=== PATIENT | male | born 1955 | race Caucasian/White ===

== ENCOUNTER → 2017-12-19 17:24 | Outpatient (CLI) | payer BC, SELFPAY ==
[2017-12-19 18:13] LABS: Absolute Lymphocyte Count 1.76 X10^3/ul (0.83-4.51); Absolute Neutrophil Count 8.1 X10^3/uL (2.0-7.7); Basophil# 0.03 X10^3/uL; Basophil% 0.3 % (0-1); Eosinophil# 0.02 X10^3/uL; Eosinophils% 0.2 % (0-5); Hematocrit 42.8 % (40-54); Hemoglobin 13.8 g/dl (13.0-16.5); Lymphocyte # 1.76 X10^3/ul (4.0); Lymphocyte % 15.9 % (19-41); Mean Corp Hgb Conc 32.2 g/gl (32-36); Mean Corpuscular Hgb 30.5 pg (27.0-32.0); Mean Corpuscular Volume 94.5 fL (80-94); Mean Platelet Vol. 9.9 fl (6.2-12.0); Monocyte# 1.14 X10^3/uL; Monocyte% 10.3 % (0-10); Neutrophil # 8.14 X10^3/uL (2.7-7.7); Neutrophil % 73.2 % (47-70); Platelet Count 243 K/mm3 (150-450); RBC Distribution Width CV 12.7 % (11.6-14.6); Red Blood Count 4.53 M/mm3 (4.6-6.2); White Blood Count 11.1 K/mm3 (4.4-11.0)
[2017-12-19 18:17] LABS: POSITIVE COUNT NO; POSITIVE DIFFERENTIAL NO; POSITIVE MORPHOLOGY NO
[2017-12-19 18:21] LABS: AST(SGOT) 23 U/L (15-37); Alanine Aminotransfer ALT/SGPT 33 U/L (16-61); Albumin, Serum 3.9 g/dL (3.2-5.0); Alkaline Phosphatase 63 U/L (45-117); Anion Gap 10 (5-15); BUN 19 mg/dL (7-18); BUN/Creat Ratio 20.1 RATIO (10-20); Calcium,Total 9.2 mg/dL (8.5-10.1); Chloride 101 mmol/L (98-107); Creatinine, Serum 0.95 mg/dL (0.70-1.30); EST Glomerular Filtration Rate 86 mL/min (>60); Est Glom Filt Rate - Afr Amer 105 mL/min (>60); Globulin 3.9 g/dL (2.2-4.2); Glucose 83 mg/dL (74-106); Potassium 3.9 mmol/L (3.5-5.1); Protein, Total 7.8 g/dL (6.4-8.2); Sodium Level 137 mmol/L (136-145)
== END ==
PROVIDERS: Family Provider Family Medicine; PCP Family Medicine; Visit Provider Family Medicine
DX: R19.8 Other specified symptoms and signs involving the digestive system and abdomen (principal)
CPT/HCPCS: 80053; 85025

== ENCOUNTER 2017-12-19 22:55 | Emergency (ER) | payer BC, SELFPAY ==
[2017-12-19 22:56] VITALS: BP 142/81; PULSE 81; RESP 18; TEMP 37.2; O2SAT 97; BMI 22.1
--- NOTE | 2017-12-19 23:08 | CT_ITS ---
STUDY: CT ABDOMEN AND PELVIS WITH CONTRAST REASON FOR EXAM: Male, 62 years old. Left lower quadrant pain. RADIATION DOSAGE (If Supplied By Facility): CTDIvol = ( 13.35 ) mGy, DLP = ( 732.63 ) mGycm TECHNIQUE: Transaxial images were obtained from the dome of the diaphragm to the symphysis pubis without oral contrast. 100ML ml of Isovue 300 contrast was administered. Sagittal and coronal images were reconstructed. Individualized dose optimization techniques were used for this CT. COMPARISON: None. FINDINGS: There is mild atelectasis in the visualized posterior lung bases. The visualized portions of the heart are within normal limits. Normal liver. Normal gallbladder and extrahepatic biliary system. Normal spleen. Normal pancreas. Normal bilateral adrenal glands. Normal right kidney. There is a 2 cm left renal cyst. Otherwise, normal kidneys. Assessment of the stomach is limited by nondistention. Normal small intestine. There are multiple colonic diverticula consistent with diverticulosis. There is mural thickening of the descending colon, greatest in the mid segment, with prominent phlegmonous infiltration of adjacent retroperitoneal fat, consistent with acute diverticulitis. There is no demonstrated abscess or free intraperitoneal air. The appendix is visualized on axial images 76-85 appears normal. There is diffuse atherosclerotic calcification as well as noncalcified plaque in the abdominal aorta with elongation and tortuosity, but without a demonstrated aneurysm. Normal inferior vena cava. Normal retroperitoneum. Normal urinary bladder. The prostate gland is enlarged. Normal abdominal wall. There are multilevel degenerative changes of the visualized lumbar spine. CT/Abdomen/Pelvis W IV Cont ONLY IMPRESSION: Acute diverticulitis of the descending colon. No associated abscess or free intraperitoneal air. Mildly enlarged prostate. Atherosclerosis. Left renal cyst. No demonstrated urinary calculi or hydronephrosis. Electronically Signed: Adam Bush MD at 1:02 EDT , Service support ,
[2017-12-19] MEDS: 0.9% Normal Saline 1,000 ML 999 ML IV (23:21)
--- NOTE | 2017-12-19 23:31 | ED.DCSUM_ITS ---
- ER Visit Summary Date of Service: 12/19/17 Chief Complaint: Left lower quadrant abdominal pain History of Present Illness: The patient is a 62 M presents to the emergency department with about 36 hours of intermittent left lower quadrant abdominal pain. The patient symptoms began last evening. He states he had some cramping diffusely across his abdomen. He states that it felt like it radiated to his testicle. He states that he had some constipation today and and the pain worsened more into his left lower quadrant. He actually saw Dr. Franklin's partner in the office. He had some blood work done. He was told that if his symptoms worsen, he should return to the emergency department. Patient states tonight, his pain worsened. He states his is a nurse and she was concerned and wanted him to be evaluated. He has had low-grade fever at home. He does admit to some mild nausea. He states the pain comes in waves. He denies any dysuria. Physical Examination: Vital signs reviewed General: Well-nourished, well-developed Head: Normocephalic, atraumatic Eyes: Pupils equal and reactive, extraocular muscles intact Neck, supple, no lymphadenopathy Heart: Regular rate and rhythm Respiratory: No distress, clear bilaterally Abdomen: Soft, mild tenderness in the left lower quadrant without rebound or guarding, nondistended, no peritoneal signs Back: Nontender Extremities: Nontender, no edema, no cords Skin: Normal color no rash Neuro: Alert and oriented, no focal or lateralizing deficits Test Results: [] Emergency Department Course and Treatment: The patient presents with left lower quadrant pain. He did have outpatient labs today which showed a mild leukocytosis but were otherwise unremarkable. He declined any analgesics. CT of his abdomen and pelvis was obtained. He does appear to have acute diverticulitis of the descending colon. There is no perforation or abscess. I did discuss options with the patient. He wants to attempt outpatient therapy and I feel this is reasonable. He will be started on Cipro and Flagyl. He declined any analgesics for home. We did primary counselor him that if his pain worsens or is not improving within 48 hours, he needs a follow-up with his primary care or return immediately to the emergency department. He is comfortable this plan of care. Treatment Plan: [] Disposition: Discharge Impression: Acute diverticulitis This note was generated with [employer]ation software. It may contain incorrect words, spelling, and punctuation that were not noted in review of the chart prior to signing ED Disposition - Plan for ED Patient: Chief Complaint: Abd Pain Instructions: ED Diverticulitis Prescriptions: Metronidazole [Flagyl] 500 mg PO Q8H #21 tab Ciprofloxacin [Cipro] 500 mg PO BID #14 tab Referrals: Foster Franklin MD [Primary Care Provider] -
[2017-12-20 00:55] VITALS: BP 128/82; PULSE 85; RESP 17; O2SAT 99
[2017-12-20] MEDS: Ciprofloxacin 500 MG Tablet PO (01:17)
[2017-12-20] MEDS: metroNIDAZOLE 500 MG Tablet PO (01:17)
== END 2017-12-20 01:25 | disposition home or self-care (01) ==
PROVIDERS: Emergency Provider Emergency Medicine; Family Provider Family Medicine; PCP Family Medicine
DX: K57.32 Diverticulitis of large intestine without perforation or abscess without bleeding (principal); I10 Essential (primary) hypertension; Z79.899 Other long term (current) drug therapy
CPT/HCPCS: 74177; 96360; 99284; J7030; Q9967

== ENCOUNTER → 2017-12-24 11:03 | Outpatient (CLI) | payer BC, SELFPAY ==
[2017-12-24 12:30] LABS: Anion Gap 8 (5-15); BUN 17 mg/dL (7-18); BUN/Creat Ratio 21.8 RATIO (10-20); Chloride 105 mmol/L (98-107); Creatinine, Serum 0.78 mg/dL (0.70-1.30); EST Glomerular Filtration Rate 108 mL/min (>60); Est Glom Filt Rate - Afr Amer 130 mL/min (>60); Glucose 83 mg/dL (74-106); Magnesium 2.4 mg/dL (1.6-2.6); Sodium Level 141 mmol/L (136-145)
== END ==
PROVIDERS: Family Provider Family Medicine; PCP Family Medicine; Visit Provider Family Medicine
DX: K57.92 Diverticulitis of intestine, part unspecified, without perforation or abscess without bleeding (principal)
CPT/HCPCS: 36415; 80048; 83735

== ENCOUNTER → 2018-02-04 13:32 | Outpatient (CLI) | payer BC, SELFPAY ==
--- NOTE | 2018-02-04 13:39 | EKG12_ITS ---
Test Reason : CABRERA Blood Pressure : / mmHG Vent. Rate : 050 BPM Atrial Rate : 050 BPM P-R Int : 162 ms QRS Dur : 094 ms QT Int : 450 ms P-R-T Axes : 018 035 044 degrees QTc Int : 410 ms Sinus bradycardia Minimal voltage criteria for LVH, may be normal variant Borderline ECG Confirmed by BRIEN BRIONES, MANJULA ([id number]), video editor VERÓNICA FRANKLIN ([id number]) on 02/05/2018 10:32:17 AM Referred By: Foster Franklin Confirmed By:MANJULA TESFAYE MD
--- NOTE | 2018-02-04 13:55 | CT_ITS ---
STUDY: CT CHEST WITHOUT CONTRAST REASON FOR EXAM: Male, 62 years old. Dyspnea on exertion. Calcium scoring examination. This is an over read. RADIATION DOSAGE (If Supplied By Facility): CTDIvol = ( 12.19 ) mGy, DLP = ( 292.55 ) mGycm TECHNIQUE: Transaxial imaging was performed without the administration of intravenous contrast material. Individualized dose optimization techniques were used for this CT. COMPARISON: None. FINDINGS: Minimal degree of left basilar atelectasis. There is no demonstrated pleural abnormality. There are calcifications of the coronary arteries. Normal mediastinum. Normal hilar regions. Normal unenhanced pulmonary arteries. There is atherosclerotic calcification of the aortic arch. Normal osseous structures. There is no demonstrated abnormality of the visualized upper abdomen. CT/Limited Chest CT w/CCTA IMPRESSION: Atherosclerotic plaque of the aortic arch. Coronary artery calcification. Electronically Signed: Obdulio Dunn MD at 9:28 EDT Tel [phone], Service support ,
[2018-02-04 14:38] VITALS: BP 145/77; PULSE 46; RESP 18; O2SAT 97
--- NOTE | 2018-02-06 07:25 | CA.SCORE ---
Calcium Scoring Date of Study:: 02/06/18 Coronary Calcium Scoring: Coronary calcium scoring. High-resolution computed tomographic imaging of the chest was performed on 02/04/2018 with particular attention paid to the coronary arteries. Images from the examination were analyzed for the presence and extent of coronary artery calcification using the coronary calcium call quantification software. The patient tolerated the procedure well there were no complications. The results of the coronary calcification analysis are provided below: Left main coronary artery mild calcification 3.58. Left anterior descending artery 0 Left circumflex artery 0 Right coronary artery 0. Total [place] score 3.58. Percentile ranking less than 10%. The above is suggestive of a low likelihood of coronary artery disease. Impression: Minimal left main coronary artery calcification. Low likelihood of coronary artery disease.
== END ==
PROVIDERS: Family Provider Family Medicine; PCP Family Medicine; Referring Provider Family Medicine; Visit Provider Family Medicine
DX: R06.09 Other forms of dyspnea (principal)
CPT/HCPCS: 75571; 76380; 93005

== ENCOUNTER → 2018-04-29 08:38 | Outpatient (CLI) | payer BC, SELFPAY ==
[2018-04-29 10:24] LABS: Anion Gap 7 (5-15); BUN 16 mg/dL (7-18); BUN/Creat Ratio 20.1 RATIO (10-20); Calcium,Total 8.6 mg/dL (8.5-10.1); Chloride 105 mmol/L (98-107); Cholesterol 214 mg/dL (200); EST Glomerular Filtration Rate 105 mL/min (>60); Est Glom Filt Rate - Afr Amer 127 mL/min (>60); Glucose 90 mg/dL (74-106); High Density Lipoprotein 77 mg/dL; PSA,Total - Annual Screen 1.11 ng/mL (0.00-4.00); Potassium 4.1 mmol/L (3.5-5.1); Sodium Level 141 mmol/L (136-145); Triglycerides 73 mg/dL; Very Low Density Lipoprotein 15 mg/dL (5-40)
--- OUTSIDE RECORDS SUMMARY | 2018-07-01 15:53 | XMS RPT_ITS ---
:1955 Author Organization OHIP Support Name Relationship Address Phone LINA CROCKETT Unavailable [address] + [place] [address] CROCKETT, MONICA Unavailable Unavailable + [place], [place] [employer] Unavailable [address] + [place] [address] Crockett, Monica Unavailable Unavailable + [place] [address] CROCKETT, LINA Unavailable [address] + [place] [address] [employer] Unavailable [address] + [place] [address] Crockett, Monica Unavailable Unavailable + [place] [address] CROCKETT, LINA Unavailable [address] + [place] [address] [employer] Unavailable [address] + [place] [address] Crockett, Monica Unavailable Unavailable + [place] [address] CROCKETT, LINA Unavailable [address] + [place] [address] [employer] Unavailable [address] + [place] [address] Crockett, Monica Unavailable . + [place] [address] KEIRA, LINA Unavailable [address] + [place] [address] [employer] Unavailable [address] + [place] [address] CROCKETT, LINA Unavailable [address] + [place] [address] [employer] Unavailable [address] + [place] [address] CROCKETT, LINA Unavailable [address] [facility] + [place] [address] [employer] Unavailable [address] [facility] + [place] [address] LINA CROCKETT Unavailable [address] [facility] + [place] [address] [employer] Unavailable [address] + [place] [address] Care Team Providers Name Role Phone RigobertoFoster Attending Unavailable Nye, Foster Referring Unavailable Nye, Foster Primary Care Unavailable Schinner, Foster E Attending Unavailable Schinner, Foster E Referring Unavailable Nye, Foster Primary Care Unavailable Nye, Foster Primary Care Unavailable Esperanza, Didier Attending Unavailable Neal, Delvin Attending Unavailable Nye, Foster Primary Care Unavailable Cebul, Chico Attending Unavailable Nye, Foster Referring Unavailable Nye, Foster Attending Unavailable Nye, Foster Referring Unavailable Nye, Foster Primary Care Unavailable Lauren, Richard Attending Unavailable Nye, Foster Referring Unavailable Nye, Foster Primary Care Unavailable Nye, Foster Consulting Unavailable MoodisFco giron Attending Unavailable Nye, Foster Referring Unavailable PROBLEMS PROBLEMS DATE TYPE CONDITION / CODE ATTENDING STATUS SOURCE 03/25/2018 Unknown R06.09 - Other forms Foster Nye Active [place] of dyspnea / Community R06.09(ICD-10) Hospital Repository 02/20/2018 Unknown R00.1 - Bradycardia, Fco Tesfaye Active [place] unspecified / Community R00.1(ICD-10) Hospital Repository 01/25/2018 Unknown K57.92 - Chico Lombardi Active [place] Diverticulitis of [facility] intestine, part Hospital unspecified, without Repository perforation or abscess without bleeding / K57.92(ICD-10) PROCEDURES PROCEDURES No Procedure Records FoundRESULTS RESULTS BASIC METABOLIC Collected: 04/29/2018 Status: F Source: [place] PROFILE (BMP) 8:44 AM [facility] REPOSITORY Order Comment: Order Date: 09/20/17 Order Info: 0667-1 - BMP Order Info: 58219-9 - LIPID Order Info: 2857-1 - PSA TYPE CODE TESTS RESULT OUT OF RANGE REFERENCE UNITS LAB L501.0100 74-106 mg/dL Normal GLU 90 Result Comment: Please note revised GLUCOSE reference range effective 2017. LAB L501.1000 7-18 mg/dL Normal BUN 16 LAB L501.1100 0.70-1.30 mg/dL Normal CREAT,SERUM 0.80 Result Comment: The validity of the calculated GFR AND GFRAA in patients over 70 years has not been determined. Clinical correlation is essential. LAB L501.1110 >60 mL/min Normal EST GFR 105 Result Comment: Non- GFR Calc LAB L501.1115 >60 mL/min Normal EST GFR - AA 127 Result Comment: GFR Calc LAB L501.1300 10-20 RATIO High BUN/CRE 20.1 LAB L501.2200 8.5-10.1 mg/dL CA Normal 8.6 LAB L501.5300 136-145 mmol/L NA Normal 141 LAB L501.5600 3.5-5.1 mmol/L K Normal 4.1 LAB L501.5900 98-107 mmol/L CL Normal 105 LAB L501.6100 21.0-32.0 mmol/L Normal CO2 29.0 LAB L501.6200 5-15 Normal GAP 7 Performed By: #### L500.2500, L500.4100, L501.9910 #### [facility] [address] [place], [address] LIPID PROFILE Collected: 04/29/2018 Status: F Source: [place] 8:44 AM [facility] REPOSITORY Order Comment: Order Date: 09/20/17 Order Info: 0667-1 - BMP Order Info: 35949-8 - LIPID Order Info: 2857-1 - PSA TYPE CODE TESTS RESULT OUT OF RANGE REFERENCE UNITS LAB L501.4900 200 mg/dL High CHOL 214 Result Comment: <200 mg/dL Desirable 200-240 mg/dL Borderline >240 mg/dL High Risk LAB L501.5000 mg/dL Normal TRIG 73 Result Comment: The drugs N-Acetylcysteine and Metamizole may falsely depress this assay. Serum Triglycerides Reference Interval Normal <150 mg/dL Borderline high 150 - 199 mg/dL High 200 - 499 mg/dL Very High > or = 500 mg/dL LAB L501.6400 mg/dL Normal HDL 77 Result Comment: The drugs N-Acetylcysteine and Metamizole may falsely depress this assay. Reference Range HDL <40 mg/dL Low HDL Cholesterol HDL >or= 60 mg/dL High HDL Cholesterol LAB L501.6500 0-130 mg/dL Normal LDL 122 LAB L501.6600 5-40 mg/dL Normal VLDL 15 Performed By: #### L500.2500, L500.4100, L501.9910 #### [facility] [address] [place], [address] PSA,TOTAL - ANNUAL Collected: 04/29/2018 Status: F Source: [place] SCREEN 8:44 AM [facility] REPOSITORY Order Comment: Order Date: 09/20/17 Order Info: 0667-1 - BMP Order Info: [id number] - LIPID Order Info: 2857-1 - PSA TYPE CODE TESTS RESULT OUT OF RANGE REFERENCE UNITS LAB L501.9910 0.00-4.00 ng/mL Normal PSA,TOT 1.11 SCREEN Result Comment: This test was performed using the TPSA assay method for the [employer] chemistry system. Values obtained with different assay methods cannot be used interchangably. When changing PSA assays in the course of monitoring a patient, additional sequential testing should be carried out to confirm baseline values. Performed By: #### L500.2500, L500.4100, L501.9910 #### [facility] [address] [place], [address] 12 LEAD ELECTROCARDIOGRAM Observed: 02/05/2018 Status: F Source: [place] 10:32 AM [facility] REPOSITORY [facility] Cardiovascular Services [address] [place] [address] 12 Lead EKG 02/04/18 1348 MR#: [id number] Acct: [id number] Name: KALIN CROCKETT Rep #: [id number] : 1955 62 From: Fco Tesfaye MD Attending Dr: Foster Nye MD Status: REG CLI Ordering Dr: Foster Nye MD Date: 02/04/18 Location: CT Sex: M C Admitted: Test Reason : CABRERA Blood Pressure : / mmHG Vent. Rate : 050 BPM Atrial Rate : 050 BPM P-R Int : 162 ms QRS Dur : 094 ms QT Int : 450 ms P-R-T Axes : 018 035 044 degrees QTc Int : 410 ms Sinus bradycardia Minimal voltage criteria for LVH, may be normal variant Borderline ECG Confirmed by FCO TESFAYE MD ([id number]), communications editor VERÓNICA NYE ([id number]) on 02/05/2018 10:32:17 AM Referred By: Foster Nye Confirmed By:FCO TESFAYE MD 02/05/18 1032 Date Fco Tesfaye MD CC: Foster Nye MD Signed LIMITED CHEST CT Observed: 02/04/2018 Status: F Source: [place] W/CCTA 2:00 PM [facility] REPOSITORY [facility] Imaging Services [address] [place] [address] w/CCTA MR#: [id number] Acct: [id number] Name: KALIN CROCKETT Rep #: [id number] : 1955 M 62 From: Obdulio Dunn MD PCP: Foster Nye MD Status: REG CLI Study: Limited Chest CT w/CCTA Date of Exam: 02/04/18 Exam# [id number] Ordering Dr: Foster Nye MD STUDY: CT CHEST WITHOUT CONTRAST REASON FOR EXAM: Male, 62 years old. Dyspnea on exertion. Calcium scoring examination. This is an over read. RADIATION DOSAGE (If Supplied By Facility): CTDIvol = ( 12.19 ) mGy, DLP = ( 292.55 ) mGycm TECHNIQUE: Transaxial imaging was performed without the administration of intravenous contrast material. Individualized dose optimization techniques were used for this CT. COMPARISON: None. FINDINGS: Minimal degree of left basilar atelectasis. There is no demonstrated pleural abnormality. There are calcifications of the coronary arteries. Normal mediastinum. Normal hilar regions. Normal unenhanced pulmonary arteries. There is atherosclerotic calcification of the aortic arch. Normal osseous structures. There is no demonstrated abnormality of the visualized upper abdomen. CT/Limited Chest CT w/CCTA IMPRESSION: Atherosclerotic plaque of the aortic arch. Coronary artery calcification. Electronically Signed: Obdulio Dunn MD at 9:28 EDT Tel [phone], Service support , CC: Foster Nye MD Ems Driver: Signed SURGERY VISIT REPORT Observed: 01/25/2018 Status: F Source: [place] 3:09 PM [facility] RE[facility]ITORY [facility] [address] [place] [address] OFFICE VISIT Date of Service: 01/25/18 MR#: [id number] Acct: [id number] Name: KALIN CROCKETT Rep #: [id number] : 1955 Provider: Chico Lombardi MD Age/Sex: 62/M Location: [facility] Status: Signed Intake Vital Signs01/25/18 Height 6 ft 3.5 in 01/25/18 Weight: 164 lb Intake Visit Reasons: diverticulitis, recent er visit (12/19), cscope Allergies No Known Allergies Allergy (Verified 12/19/17 22:55) Medications enalapril 10 mg-hydrochlorothiazide 25 mg tablet 0.5 tab PO DAILY tab 01/25/18 [History Confirmed 01/25/18] PFSH Medical History Diverticulitis (Acute) Hemorrhoids (Acute) Sleep apnea (Acute) Anxiety (Acute) Back problem (Acute) Surgical History Hx of foot surgery (Acute) Hx of eye surgery (Acute) Family History Father Hypertension Cancer Skin cancer Mother CVA (cerebral vascular accident) Social History Smoking Status: Never smoker second hand exposure: No alcohol intake: never substance use type: does not use caffeine: Yes what type of physical activity do you participate in: walking frequency: 5-6 times per week duration: > 90 minutes/day seatbelt use: always HPI HPI HPI: KALIN CROCKETT, is a 62 M who presents to the office today for surgical consultation and treatment regarding a bout of acute sigmoid diverticulitis. 62-year-old gentleman. 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 On December 19, 2017 he presented to the [facility] emergency room because of acute abdominal pain and fever. On December [address] scan was obtained. This demonstrated multiple colonic diverticula consistent with diverticulosis. There is mural thickening in the descending colon with prominent phlegmon and infiltration consistent with acute diverticulitis. No abscess. The patient was initially scheduled with GI to pursue a colonoscopy however there were issues with the provider who canceled. Patient now is seeking additional assistance. He does not recall of specific food that was etiologic to this episode. He is long-ago returned to work without limitation. He did take ciprofloxacin as an oral antibiotic as he was treated as an outpatient but claims that the ciprofloxacin was hard to tolerate because of confusion and dizziness. The patient has never had a previous colonoscopy. He denies family history of colon polyps or colon cancer. He denies any current symptoms of fever or abdominal pain. ROS General General: Yes weight change; no appetite, fatigue, colon cancer or breast cancer HEENT HEENT: Yes eye surgery; no difficulty swallowing, eye injury, swollen glands or hoarseness Endo Endocrine: No thyroid disease, diabetes mellitus, thyroid cancer, Hair loss, heat intolerance or cold intolerance Skin Skin: No rash or changing moles Musc Musculoskeletal: Yes back problems; no arthritis, rheumatoid arthritis, gout or joint pain Cardio Cardiovascular: No murmur, pacemaker, heart disease, atrial fibrillation, high blood pressure, heart attack, heart stent, palpitations, shortness of breat with exertion or chest pain Psych Psychiatric: Yes anxiety; no depression or hearing voices Resp Respiratory: No shortness of breath, Yes sleep apnea, No cough, No COPD, No asthma, No emphysema, No wheezing Gastro Gastrointestinal: Yes hemorrhoids, Yes gallbladder problem, No abdominal pain, No nausea or vomiting, No diarrhea, No constipation, No blood in stool, No acid reflux, No ulcers, No black,tarry stools Leo Hematologic: No blood thinners, No blood disorders, No bleeding, No anemia, No blood clots Neuro Neurologic: Yes tingling, Yes numbness Exam Const General: cooperative, healthy appearing, no acute distress Nutritional Appearance: average body habitus Orientation: alert, awake, oriented x3 HENMT Head: normal to inspection Eyes General: appearance normal, both eyes and all related structures Resp Effort AND Inspection: normal respiratory effort Auscultation: clear to auscultation bilaterally Cardio Rate: regular rate Rhythm: regular rhythm Heart Sounds: no murmurs GI Palpation: soft, no hepatosplenomegaly Auscultation: normal bowel sounds Skin General: no rashes or lesions noted Neuro General: CN's II-XI intact bilaterally Extrem General: no calf tenderness Assessment AND Plan Problems 1. Diverticulitis K57.92 Plan I have recommended the patient a colonoscopy with possible biopsy or polyp is indicated. Very careful inspection of the sigmoid and descending colon were done soon. The patient is aware of the technique, benefits, risks, alternatives. 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 We will schedule and proceed at his discretion. I very much appreciate the kind opportunity of assisting with his surgical care. is Lina CC: Dr. KIERAN Lombardi M.D., F.A.C.S. Coding Level of Care Code Off vis,new,level 1 Diagnoses Diverticulitis K57.92 01/25/18 1509 <Electronically signed by Chico Lombardi MD> Date Chico Lombardi MD Cosigner Signature: Date (if applicable) CC: Foster Nye MD BASIC METABOLIC Collected: 12/24/2017 Status: F Source: [place] PROFILE (BMP) 11:05 AM [facility] REPOSITORY TYPE CODE TESTS RESULT OUT OF RANGE REFERENCE UNITS LAB L501.0100 74-106 mg/dL Normal GLU 83 Result Comment: Please note revised GLUCOSE reference range effective 2017. LAB L501.1000 7-18 mg/dL Normal BUN 17 LAB L501.1100 0.70-1.30 mg/dL Normal CREAT,SERUM 0.78 Result Comment: The validity of the calculated GFR AND GFRAA in patients over 70 years has not been determined. Clinical correlation is essential. LAB L501.1110 >60 mL/min Normal EST GFR 108 Result Comment: Non- GFR Calc LAB L501.1115 >60 mL/min Normal EST GFR - AA 130 Result Comment: GFR Calc LAB L501.1300 10-20 RATIO High BUN/CRE 21.8 LAB L501.2200 8.5-10.1 mg/dL CA Normal 9.0 LAB L501.5300 136-145 mmol/L NA Normal 141 LAB L501.5600 3.5-5.1 mmol/L K Normal 4.0 LAB L501.5900 98-107 mmol/L CL Normal 105 LAB L501.6100 21.0-32.0 mmol/L Normal CO2 28.0 LAB L501.6200 5-15 Normal GAP 8 Performed By: #### L500.2500, L501.5200 #### [facility] [address] [facility] [place], [address] MAGNESIUM Collected: 12/24/2017 Status: F Source: [place] 11:05 AM [facility] REPOSITORY TYPE CODE TESTS RESULT OUT OF RANGE REFERENCE UNITS LAB L501.5200 1.6-2.6 mg/dL Normal MG 2.4 Performed By: #### L500.2500, L501.5200 #### [facility] [address] [place], [address] EMERGENCY DEPARTMENT Observed: 12/20/2017 Status: F Source: [place] SUMMARY 1:58 AM [facility] REPOSITORY [facility] Medical Records Department [address] [place] [address] Emergency Department Summary 12/19/17 2330 MR#: [id number] Acct: [id number] Name: KALIN CROCKETT Rep #: [id number] : 1955 62 From: Didier Mata MD PCP: Foster Nye MD Status: DEP ER - ER Visit Summary Date of Service: 12/19/17 Chief Complaint: Left lower quadrant abdominal pain History of Present Illness: The patient is a 62 M presents to the emergency department with about 36 hours of intermittent left lower quadrant abdominal pain. The patient symptoms began last evening. He states he had some cramping diffusely across his abdomen. He states that it felt like it radiated to his testicle. He states that he had some constipation today and and the pain worsened more into his left lower quadrant. He actually saw Dr. Nye's partner in the office. He had some blood work done. He was told that if his symptoms worsen, he should return to the emergency department. Patient states tonight, his pain worsened. He states his is a nurse and she was concerned and wanted him to be evaluated. He has had low-grade fever at home. He does admit to some mild nausea. He states the pain comes in waves. He denies any dysuria. Physical Examination: Vital signs reviewed General: Well-nourished, well-developed Head: Normocephalic, atraumatic Eyes: Pupils equal and reactive, extraocular muscles intact Neck, supple, no lymphadenopathy Heart: Regular rate and rhythm Respiratory: No distress, clear bilaterally Abdomen: Soft, mild tenderness in the left lower quadrant without rebound or guarding, nondistended, no peritoneal signs Back: Nontender Extremities: Nontender, no edema, no cords Skin: Normal color no rash Neuro: Alert and oriented, no focal or lateralizing deficits Test Results: [] Emergency Department Course and Treatment: The patient presents with left lower quadrant pain. He did have outpatient labs today which showed a mild leukocytosis but were otherwise unremarkable. He declined any analgesics. CT of his abdomen and pelvis was obtained. He does appear to have acute diverticulitis of the descending colon. There is no perforation or abscess. I did discuss options with the patient. He wants to attempt outpatient therapy and I feel this is reasonable. He will be started on Cipro and Flagyl. He declined any analgesics for home. We did work counselor him that if his pain worsens or is not improving within 48 hours, he needs a follow-up with his primary care or return immediately to the emergency department. He is comfortable this plan of care. Treatment Plan: [] Disposition: Discharge Impression: Acute diverticulitis This note was generated with [employer] dictation software. It may contain incorrect words, spelling, and punctuation that were not noted in review of the chart prior to signing ED Disposition - Plan for ED Patient: Chief Complaint: Abd Pain Instructions: ED Diverticulitis Prescriptions: Metronidazole [Flagyl] 500 mg PO Q8H #21 tab Ciprofloxacin [Cipro] 500 mg PO BID #14 tab Referrals: Foster Nye MD [Primary Care Provider] - What to do if you have Problems For any increased pain, shortness of breath, bleeding, nausea or vomiting, chest pain, or any unexpected problems, contact your Primary Care Provider. Call [facility] ([phone]) or report to the closest Emergency Room. Call 911 if necessary. 12/20/17 0158 <Electronically signed by Didier Mata MD> Date Didier Mata MD Cosigner Signature (If Indicated): Date CC: Foster Nye MD ABDOMEN/PELVIS W IV CONT Observed: 12/19/2017 Status: F Source: [place] ONLY 11:09 PM [facility] REPOSITORY [facility] Imaging Services [address] [place] [address] Abdomen/Pelvis W IV Cont ONLY MR#: [id number] Acct: [id number] Name: KALIN CROCKETT Rep #: [id number] : 1955 M 62 From: Adam Bush MD PCP: Foster Nye MD Status: REG ER Study: Abdomen/Pelvis W IV Cont ONLY Date of Exam: 12/19/17 Exam# [id number] Ordering Dr: Didier Mata MD STUDY: CT ABDOMEN AND PELVIS WITH CONTRAST REASON FOR EXAM: Male, 62 years old. Left lower quadrant pain. RADIATION DOSAGE (If Supplied By Facility): CTDIvol = ( 13.35 ) mGy, DLP = ( 732.63 ) mGycm TECHNIQUE: Transaxial images were obtained from the dome of the diaphragm to the symphysis pubis without oral contrast. 100ML ml of Isovue 300 contrast was administered. Sagittal and coronal images were reconstructed. Individualized dose optimization techniques were used for this CT. COMPARISON: None. FINDINGS: There is mild atelectasis in the visualized posterior lung bases. The visualized portions of the heart are within normal limits. Normal liver. Normal gallbladder and extrahepatic biliary system. Normal spleen. Normal pancreas. Normal bilateral adrenal glands. Normal right kidney. There is a 2 cm left renal cyst. Otherwise, normal kidneys. Assessment of the stomach is limited by nondistention. Normal small intestine. There are multiple colonic diverticula consistent with diverticulosis. There is mural thickening of the descending colon, greatest in the mid segment, with prominent phlegmonous infiltration of adjacent retroperitoneal fat, consistent with acute diverticulitis. There is no demonstrated abscess or free intraperitoneal air. The appendix is visualized on axial images 76-85 appears normal. There is diffuse atherosclerotic calcification as well as noncalcified plaque in the abdominal aorta with elongation and tortuosity, but without a demonstrated aneurysm. Normal inferior vena cava. Normal retroperitoneum. Normal urinary bladder. The prostate gland is enlarged. Normal abdominal wall. There are multilevel degenerative changes of the visualized lumbar spine. CT/Abdomen/Pelvis W IV Cont ONLY IMPRESSION: Acute diverticulitis of the descending colon. No associated abscess or free intraperitoneal air. Mildly enlarged prostate. Atherosclerosis. Left renal cyst. No demonstrated urinary calculi or hydronephrosis. Electronically Signed: Adam Bush MD at 1:02 EDT , Service support , CC: Foster Nye MD; Didier Mata MD Ems Driver: Signed CBC W/DIFF, AUTOMATED Collected: 12/19/2017 Status: F Source: [place] 5:40 PM [facility] REPOSITORY Order Comment: Order Date: 12/19/17 Order Info: 0184-1 - CBCD TYPE CODE TESTS RESULT OUT OF RANGE REFERENCE UNITS LAB L100.1000 4.4-11.0 K/mm3 High WBC 11.1 LAB L100.1200 4.6-6.2 M/mm3 Low RBC 4.53 LAB L100.1300 13.0-16.5 g/dl Normal HGB 13.8 LAB L100.1400 40-54 % Normal HCT 42.8 LAB L100.1500 80-94 fL High MCV 94.5 LAB L100.1600 27.0-32.0 pg Normal MCH 30.5 LAB L100.1700 32-36 g/gl Normal MCHC 32.2 LAB L100.1810 11.6-14.6 % Normal RDW CV 12.7 LAB L100.1820 35.1-43.9 fl High RDW SD 44.0 LAB L100.1900 150-450 K/mm3 Normal PLT 243 LAB L100.2000 6.2-12.0 fl Normal MPV 9.9 LAB L100.2100 47-70 % High NEUT% 73.2 LAB L100.2200 19-41 % Low LY% 15.9 LAB L100.2300 0-10 % High MONO% 10.3 LAB L100.2400 0-5 % Normal EO% 0.2 LAB L100.2500 0-1 % Normal BASO% 0.3 LAB L100.2550 0.0-0.9 % Normal IM GRAN % 0.100 Result Comment: IG% - Immature Granulocytes (promyelocytes, myelocytes and metamyelocytes) > 1% indicates that a LEFT SHIFT is Present. LAB L100.2620 2.0-7.7 X10 3/uL High Absolute Neut 8.1 LAB L100.2720 0.83-4.51 X10 3/ul Normal Absolute Lymph 1.76 Performed By: #### L100.0100, L500.4050 #### [facility] [address] [place], [place], [address] COMPREHENSIVE METABOLIC Collected: 12/19/2017 Status: F Source: [facility] 5:40 PM [facility] REPOSITORY Order Comment: Order Date: 12/19/17 Order Info: 0786-1 - CMP TYPE CODE TESTS RESULT OUT OF RANGE REFERENCE UNITS LAB L501.0100 74-106 mg/dL Normal GLU 83 Result Comment: Please note revised GLUCOSE reference range effective 2017. LAB L501.1000 7-18 mg/dL High BUN 19 LAB L501.1100 0.70-1.30 mg/dL Normal CREAT,SERUM 0.95 Result Comment: The validity of the calculated GFR AND GFRAA in patients over 70 years has not been determined. Clinical correlation is essential. LAB L501.1110 >60 mL/min Normal EST GFR 86 Result Comment: Non- GFR Calc LAB L501.1115 >60 mL/min Normal EST GFR - AA 105 Result Comment: GFR Calc LAB L501.1300 10-20 RATIO High BUN/CRE 20.1 LAB L501.1500 6.4-8.2 g/dL T Normal PROT 7.8 LAB L501.1800 3.2-5.0 g/dL Normal ALB 3.9 LAB L501.1950 2.2-4.2 g/dL Normal GLOB 3.9 LAB L501.2000 0.9-2.4 RATIO Normal A/G 1.0 LAB L501.2200 8.5-10.1 mg/dL CA Normal 9.2 LAB L501.4100 15-37 U/L Normal AST 23 LAB L501.4305 45-117 U/L Normal ALK P 63 LAB L501.4405 16-61 U/L Normal ALT 33 LAB L501.4600 0.20-1.00 mg/dL T Normal BILI 0.50 LAB L501.5300 136-145 mmol/L NA Normal 137 LAB L501.5600 3.5-5.1 mmol/L K Normal 3.9 LAB L501.5900 98-107 mmol/L CL Normal 101 LAB L501.6100 21.0-32.0 mmol/L Normal CO2 26.0 LAB L501.6200 5-15 Normal GAP 10 Performed By: #### L100.0100, L500.4050 #### [facility] [address] [facility] [place], [address] ALLERGIES ALLERGIES DATE TYPE / CODE NAME / CODE REACTION SEVERITY SOURCE 02/04/2018 Drug hydrocodone/F Upset Stomach [place] [facility] Allergy/4160 [id number]([facility] [address]28(SNOMED ORM) Repository CT) 02/04/2018 Drug oxycodone/F00 Upset Stomach [place] [facility] Allergy/4160 [id number]([facility] [address](SNOMED M) Repository CT) 02/04/2018 Drug acetaminophen Upset Stomach [place] [facility] Allergy/4160 /[id number]([facility] [address]45(SNOMED XNORM) Repository CT) 12/19/2017 Drug No Known Unknown Michael [facility] Allergy/4160 Allergies/F00 Hospital [address]9922(SNOMED 1254486(RXNOR Repository CT) M) ENCOUNTERS ENCOUNTERS ADMIT/DISCHARGE ACCOUNT ADMITTING ENCOUNTER LOCATION SOURCE NUMBER CLASS 04/29/2018 [id number] [place] 1 [facility] ing:LAB Repository 02/06/2018 [id number] Ambulatory BMS[place] 0 [place] [place] 02/04/2018 [id number] Ambulatory [place] 8 [facility] ing:CT Repository 02/04/2018 [id number] Ambulatory BMSBuilding:[place] 3 [facility] Repository 01/25/2018/ [id number] Ambulatory BMSBuilding:B [place] 8 3 [place] [facility] [place] 12/24/2017 [id number] Ambulatory [place] 2 [facility] ing:MFPLAB Repository 12/19/2017/ [id number] Emergency [place] 8 8 [facility] ing:ED Repository 12/19/2017 [id number] Ambulatory [place] 7 [facility] ing:LAB Repository PAYERS PAYERS ENCOUNTER GUARANTOR PAYER SUBSCRIBER SOURCE 04/29/2018 KALIN [place] Primary KALIN E [place] W [facility] Insurance:ANTHEMPolic BAIRDDOB: [facility] Number: [id number] [address]Mkz: [id number] Repository Date:8284-77-14[address] () [address], [place] [address]JK: 04/29/2018 Secondary NOT GIVENUNK Michael Insurance:SELF PAY [facility] Number: Effective Repository Date:2018-04-29 02/06/2018 KALIN [place] Primary Insurance:[facility] KALIN E [place] [facility] PACKAGE PLANPolicy BAIRDDOB: [facility] Number: [id number] [address]Qrb: [id number] Repository Date:2018-01-24 () 02/06/2018 Secondary KALIN E [place] Insurance:ANTHEMPolic BAIRDDOB: Community y Number: [id number] Hospital [id number] Repository Date:1614-99-[address], [place] [address]CE: 02/06/2018 Tertiary NOT GIVENUNK Michael Insurance:SELF PAY [facility] Number: Effective Repository Date:2018-02-06 02/04/2018 KALIN E BAIRD15 Primary KALIN E [place] W [employer] Insurance:ANTHEMPolic BAIRDDOB: [facility], y Number: [id number] Hospital [place] [address]Awa: [id number] Repository Date:8242-62-31[address] () [address], [place] [address]CE: 02/04/2018 Secondary KALIN E [place] Insurance:[facility] PACKAGE BAIRDDOB: [facility] Number: [id number] Hospital [id number] Repository Date:2018-01-24 02/04/2018 Tertiary NOT GIVENUNK [place] Insurance:SELF PAY [facility] Number: Effective Repository Date:2018-01-24 02/04/2018 KALIN E BAIRD15 Primary Insurance:[facility] KALIN E [place] W [employer] PACKAGE PLANPolicy BAIRDDOB: [facility], Number: [id number] Hospital [place] [address]Dsk: [id number] Repository Date:2018-01-24 () 02/04/2018 Secondary KALIN E [place] Insurance:ANTHEMPolic BAIRDDOB: [facility] y Number: [id number] Hospital [id number] Repository Date:7263-02-70[address], [place] [address]SP: 02/04/2018 Tertiary NOT GIVENUNK [place] Insurance:SELF PAY [facility] Number: Effective Repository Date:2018-02-04 01/25/2018 KALIN E BAIRD15 Primary KALIN E [place] W [employer] Insurance:ANTHEMPolic BAIRDDOB: [facility] [place] y Number: [id number] Medical [facility] [address]Cut: [id number] Repository Date:2622-62-62[address] () [address]OXCXGOOLARA HUI [address]WQ: 01/25/2018 Secondary NOT GIVENUNK [place] Insurance:SELF PAY [facility] Number: Effective Repository Date:2018-01-25 12/24/2017 Kalin E Baird15 Primary Kalin E [place] W [employer] Insurance:ANTHEMPolic [place]aird[place]OB[place] Number: [id number] [address]Iqe: [id number] Repository Date:8358-13-93[address] () [address]XNYAEJMLARA HUI [address]LJ: 12/24/2017 Secondary NOT GIVENUNK [place] Insurance:SELF PAY [facility] Number: Effective Repository Date:2017-12-24 12/19/2017 Kalin E Baird15 Primary Kalin E [place] W [employer] Insurance:ANTHEMPolic BairdDOB: [facility] [place] Number: [id number] [address]Jdz: [id number] Repository Date:6886-59-76KI [address] () [address]KQOHEKULARA HUI [address]SV: 12/19/2017 Secondary NOT GIVENUNK [place] Insurance:SELF PAY [facility] Number: Effective Repository Date:2017-12-19 12/19/2017 Kalin E Baird15 Primary Kalin E [place] W [employer] Insurance:ANTHEMPolic BairdDOB: [facility] [place] Number: [id number] [facility] [address]Hwo: [id number] Repository Date:1497-94-21NA [address] () [address], [place] [address]YM: 12/19/2017 Secondary NOT GIVENUNK [place] Insurance:SELF PAY [facility] Number: Effective Repository Date:2017-12-19
== END ==
PROVIDERS: Family Provider Family Medicine; PCP Family Medicine; Referring Provider Family Medicine; Visit Provider Family Medicine
DX: I10 Essential (primary) hypertension (principal); E78.00 Pure hypercholesterolemia, unspecified; Z12.5 Encounter for screening for malignant neoplasm of prostate
CPT/HCPCS: 36415; 80048; 80061; 84153; G0103

== ENCOUNTER 2018-05-08 20:20 | Emergency (ER) | payer BC, SELFPAY ==
[2018-05-08 20:21] VITALS: BP 136/76; PULSE 66; RESP 16; TEMP 36.9; O2SAT 98; BMI 19.9
--- NOTE | 2018-05-08 20:40 | CT_ITS ---
STUDY: CT ABDOMEN AND PELVIS WITHOUT CONTRAST REASON FOR EXAM: Male, 62 years old. Left abdominal pain. History of diverticulitis. Question hernia. RADIATION DOSAGE (If Supplied By Facility): CTDIvol = ( 6.14 ) mGy, DLP = ( 282.29 ) mGycm TECHNIQUE: Transaxial images were obtained from the dome of the diaphragm to the symphysis pubis without oral contrast, and without intravenous contrast. Sagittal and coronal images were reconstructed. Individualized dose optimization techniques were used for this CT. COMPARISON: CT of the abdomen and pelvis, December 19, 2017. FINDINGS: The visualized lung bases are unremarkable. The visualized portions of the heart are within normal limits. Normal liver. Normal gallbladder and extrahepatic biliary system. Normal spleen. Normal pancreas. Normal bilateral adrenal glands. Normal right kidney. There is a 2.2 cm cyst in the upper pole and otherwise normal left kidney. Normal visualized stomach. Normal small intestine. Feces is seen throughout nondistended colon. There is descending colon and sigmoid diverticulosis without acute inflammatory change. The appendix is visualized and appears normal. There is atherosclerotic changes of the abdominal aorta without aneurysm. Normal inferior vena cava. Normal retroperitoneum. Normal urinary bladder. The prostate is mildly enlarged with central calcifications. There are phleboliths in the pelvis without lymphadenopathy. No free air or free fluid is seen within the peritoneal cavity. There is an umbilical hernia of omental fat. The abdominal wall is otherwise unremarkable. There are diffuse degenerative changes of the visualized lumbar spine. CT/Abdomen/Pelvis without Cont IMPRESSION: 1. Diverticulosis without acute inflammatory change. 2. Mildly enlarged prostate unchanged from the prior study. 3. Left renal cyst. 4. No evidence of acute intra-abdominal or pelvic abnormality. 5. Mild degenerative changes of the lumbar spine. Electronically Signed: Yakov Saucedo DO at 21:11 EST Tel [phone], Service support ,
--- NOTE | 2018-05-08 20:43 | ED.DCSUM_ITS ---
- ER Visit Summary Date of Service: 05/08/18 Chief Complaint: Abdominal pain History of Present Illness: The patient is a 62 M who presents with left lower quadrant abdominal pain that has gradually gotten worse over the past 5 days. Patient states the pain is worse with sitting and better when he lays flat. Patient states she noted some swelling when he stands up. Patient describes the pain as aching but sharp at times. Patient states the pain is over the left lower abdomen. Patient denies any nausea or vomiting. Patient denies any diarrhea, melena, or hematochezia. Patient denies any urinary complaints. Patient states he has a history of diverticulitis but states this pain is different. Physical Examination: Vital signs are stable. Patient is afebrile. Patient is in no acute distress. Oral mucosa is pink and moist. Neck is supple. Trachea is midline. There is no JVD noted. Heart was regular rate and rhythm. Lungs are clear and equal bilateral. Abdomen is soft. Bowel sounds are normal. There is mild left lower quadrant tenderness. There is a questionable fascial defect in the left lower abdomen. There are no inguinal hernias. There is no rebound or guarding noted. Skin is warm dry. Cranial nerves II through XII are intact. There are no focal motor or sensory deficits noted. The remaining physical exam is within normal limits. Test Results: CBC shows a mild anemia with a hemoglobin of 12.6 and hematocrit 37.4. Comprehensive metabolic profile shows slightly elevated BUN of 26. CT scan of the abdomen and pelvis does not show any acute intra-abdominal process. There is diverticulosis noted but no evidence of diverticulitis. Emergency Department Course and Treatment: Patient was advised that there may be a hernia in the left lower quadrant however, I do not see any evidence for acute surgical intervention at this time. Patient states he has seen Dr. Lombardi in the past. Patient was instructed to follow-up with Dr. Lombardi in 7-10 days if needed. Patient states she has an appointment with his primary care physician tomorrow. Patient understood and was agreeable with plan. All questions were answered. Disposition: Discharge home Impression: Left lower quadrant abdominal pain This note was generated with [employer] dictation software. It may contain incorrect words, spelling, and punctuation that were not noted in review of the chart prior to signing ED Disposition - Plan for ED Patient: Disposition: Home or Assisted Living Diagnosis: Left lower quadrant abdominal pain of unknown etiology Instructions: ED Abdominal Pain Unkn Cause Referrals: Foster Franklin MD [Primary Care Provider] -
[2018-05-08 20:55] LABS: Absolute Lymphocyte Count 1.63 X10^3/ul (0.83-4.51); Absolute Neutrophil Count 4.2 X10^3/uL (2.0-7.7); Basophil# 0.04 X10^3/uL; Basophil% 0.6 % (0-1); Eosinophil# 0.08 X10^3/uL; Eosinophils% 1.2 % (0-5); Hematocrit 37.4 % (40-54); Hemoglobin 12.6 g/dl (13.0-16.5); Lymphocyte # 1.63 X10^3/ul (4.0); Lymphocyte % 24.3 % (19-41); Mean Corp Hgb Conc 33.7 g/gl (32-36); Mean Corpuscular Hgb 31.7 pg (27.0-32.0); Mean Platelet Vol. 9.3 fl (6.2-12.0); Monocyte# 0.71 X10^3/uL; Monocyte% 10.6 % (0-10); Neutrophil # 4.23 X10^3/uL (2.7-7.7); Neutrophil % 63.2 % (47-70); Platelet Count 217 K/mm3 (150-450); RBC Distribution Width CV 12.6 % (11.6-14.6); RBC Distribution Width SD 42.5 fl (35.1-43.9); Red Blood Count 3.98 M/mm3 (4.6-6.2); White Blood Count 6.7 K/mm3 (4.4-11.0)
[2018-05-08 20:57] LABS: POSITIVE COUNT NO; POSITIVE DIFFERENTIAL NO; POSITIVE MORPHOLOGY NO
[2018-05-08 21:09] LABS: ALB/GLOB Ratio 1.1 RATIO (0.9-2.4); AST(SGOT) 25 U/L (15-37); Alanine Aminotransfer ALT/SGPT 34 U/L (16-61); Albumin, Serum 3.5 g/dL (3.2-5.0); Alkaline Phosphatase 68 U/L (45-117); Anion Gap 8 (5-15); BUN 26 mg/dL (7-18); BUN/Creat Ratio 25.5 RATIO (10-20); Calcium,Total 8.4 mg/dL (8.5-10.1); Chloride 107 mmol/L (98-107); Creatinine, Serum 1.02 mg/dL (0.70-1.30); EST Glomerular Filtration Rate 79 mL/min (>60); Est Glom Filt Rate - Afr Amer 96 mL/min (>60); Estimated Creatinine Clearance 81.03 ml/min; Globulin 3.2 g/dL (2.2-4.2); Glucose 133 mg/dL (74-106); Potassium 3.7 mmol/L (3.5-5.1); Protein, Total 6.7 g/dL (6.4-8.2); Sodium Level 140 mmol/L (136-145)
[2018-05-08 21:59] VITALS: BP 111/72; PULSE 60; RESP 18; O2SAT 96
== END 2018-05-08 21:59 | disposition home or self-care (01) ==
PROVIDERS: Emergency Provider Emergency Medicine; Family Provider Family Medicine; PCP Family Medicine
DX: R10.32 Left lower quadrant pain (principal); M54.9 Dorsalgia, unspecified; I10 Essential (primary) hypertension; K57.30 Diverticulosis of large intestine without perforation or abscess without bleeding
CPT/HCPCS: 74176; 80053; 85025; 99284

== ENCOUNTER 2018-05-17 05:25 | Day surgery (SDC) | payer BC, SELFPAY ==
[2018-05-17] VITALS (8 sets, daily range): BP systolic 99–137; BP diastolic 68–92; PULSE 53–61; RESP 14–18; TEMP 36.4–36.7; O2SAT 93–100; BMI 18.3
--- NOTE | 2018-05-17 06:13 | PCM.HP.STD ---
Problem List (1) Diverticulitis Status: Acute History of Present Illness Date of Admission: 05/17/18 The patient is a 62 year old M who had presented to my office January 25, 2018 for surgical consultation regarding a bout of acute sigmoid diverticulitis. He had a prominent phlegmon and infiltration. He was treated with a course of ciprofloxacin as an outpatient but that caused confusion. He has never had a previous colonoscopy. He denies family history of colon polyps or colon cancer. He gradually improved with medical treatment. It was recommended to him that he pursue a colonoscopy. He presents now at this time at his own discretion to proceed Past Medical History Medical History: Medical History (Last Reviewed 01/25/18 @ 14:14 by Asya Gutierrez) Diverticulitis (Acute) K57.92 Hemorrhoids (Acute) K64.9 Sleep apnea (Acute) G47.30 Anxiety (Acute) F41.9 Back problem (Acute) M53.9 Allergies acetaminophen [From Percocet] Adverse Reaction (Intermediate, Verified 05/08/18 20:21) Upset Stomach nausea vomiting hydrocodone [From Vicodin] Adverse Reaction (Intermediate, Verified 05/08/18 20:21) Upset Stomach nausea vomiting oxycodone [From Percocet] Adverse Reaction (Intermediate, Verified 05/08/18 20:21) Upset Stomach nausea vomiting Home Medications: Ambulatory Orders Medication Instructions Recorded enalapril 10 0.5 tab PO DAILY tab 01/25/18 mg-hydrochlorothiazide 25 mg tablet Surgical History: Surgical History (Last Reviewed 01/25/18 @ 14:14 by Asya Gutierrez) Hx of foot surgery (Acute) Z98.890 Left foot Hx of eye surgery (Acute) Z98.890 Left eye Smoking Status: Smoker, status unknown Review of Systems Constitutional: Denies: Anorexia Cardiovascular: Denies: Chest Pain Respiratory: Denies: Cough Gastrointestinal: Denies: Abdominal Pain Neurological: Denies: Balance problems Endocrine: Denies: Change in Body Habitus VTE Information - Inpt Only VTE Present on Admission: No - Physical Exam General: Alert, Oriented x3, Cooperative HEENT: Atraumatic Oral: Moist Mucosa Lungs: Clear to auscultation Cardiovascular: Regular rate, Regular Rhythm Abdomen: Bowel Sounds Present, Soft, Non Tender Psych/Mental Status: Normal Affect Vital Signs Temp Pulse Resp BP Pulse Ox 97.5 F L 61 16 99/73 100 05/17/18 05:51 05/17/18 05:51 05/17/18 05:51 05/17/18 05:51 05/17/18 05:51 Oxygen Delivery Method Room Air Weight: 151 lb Body Mass Index (BMI) 18.3 Assessment/Plan All Active Problems (Last Reviewed 01/25/18 @ 14:14 by Asya Gutierrez) Hx of foot surgery (Acute) Diverticulitis (Acute) Hemorrhoids (Acute) Sleep apnea (Acute) Anxiety (Acute) Back problem (Acute) Hx of eye surgery (Acute) I recommend to the patient a colonoscopy with possible biopsy or polypectomy as indicated. He is aware of the technique, benefits, risks, alternatives. He has had an opportunity to ask and have questions answered. We will proceed at his discretion. Chico Lombardi M.D., F.A.C.S.
--- NOTE | 2018-05-17 06:30 | COLBX_PTH ---
PATIENT: TRINA CROCKETT LOC: EN U#:[id number] AGE/SX: 62/M ROOM: RE05/17/[address]: Dr. Chico Lombardi MD : 1955 BED: DIS: 05/17/2018 SPEC #: [id number] RECD: 05/17/18 08:50 STATUS: KEITH MEI #: [id number] DIO: 05/17/18 06:[address]: Chico Lombardi DEPT: SURGICAL PATHOLOGY RECD BY: Cy Carpenter ENTERED: 05/17/18 12:47 SP TYPE: COLON BX OTHR DR: Dr. Foster Franklin MD Tissues: SPLENIC FLEXURE Procedures: Surgery Specimen Level IV HEADER OPERATION: Colonoscopy (MOD) PRE-OP DIAGNOSIS: History of diverticulitis TISSUE SUBMITTED: Polyp splenic flexure MICROSCOPIC DIAGNOSIS Polyp splenic flexure, biopsy: A few fragments of colonic mucosa with focal minimal hyperplastic changes. Fragments of fecal material. SJ:bhargav 05/20/18 COMMENT The specimen predominantly consists of fecal material. MICROSCOPIC DESCRIPTION Slides are reviewed. GROSS DESCRIPTION Received in fixative is one container labeled with the patient's name and designated polyp splenic flexure. The specimen consists of multiple irregular fragments of benitez soft tissue mixed with fecal material that in aggregate measure 2.5 x 0.5 x 0.1 cm. The specimen is totally submitted in one cassette. / CORI:bhargav 05/17/18 TC:5 CPT: 08377
--- NOTE | 2018-05-17 06:56 | OP.ENDO_ITS ---
Patient Name: Kalin Streeter Procedure Date: 05/17/2018 6:03 AM Date of : 1955 Age: 62 Procedure: Colonoscopy Indications: Screening for colorectal malignant neoplasm Providers: Chico Lombardi MD Referring MD: Chico Lombardi MD Medicines: Midazolam 4 mg IV, Meperidine 100 mg IV Patient Profile: Last Colonoscopy: more than 10 years ago. Last Colonoscopy: none. The patient's first colonoscopy is today. Complications: No immediate complications. Procedure: Pre-Anesthesia Assessment: - Prior to the procedure, a History and Physical was performed, and patient medications and allergies were reviewed. The patient's tolerance of previous anesthesia was also reviewed. The risks and benefits of the procedure and the sedation options and risks were discussed with the patient. All questions were answered, and informed consent was obtained. Prior Anticoagulants: The patient has taken no previous anticoagulant or antiplatelet agents. ASA Grade Assessment: II - A patient with mild systemic disease. After reviewing the risks and benefits, the patient was deemed in satisfactory condition to undergo the procedure. After I obtained informed consent, the scope was passed under direct vision. Throughout the procedure, the patient's blood pressure, pulse, and oxygen saturations were monitored continuously. The colonoscope was introduced through the anus and advanced to the cecum, identified by appendiceal orifice and ileocecal valve. The colonoscopy was performed without difficulty. The patient tolerated the procedure well. The quality of the bowel preparation was good. The ileocecal valve and the appendiceal orifice were photographed. Moderate Sedation: Moderate (conscious) sedation was personally administered by the endoscopist. The following parameters were monitored: oxygen saturation, heart rate, blood pressure, and response to care. Total physician intraservice time was 15 minutes. Scope In: 6:31:36 AM Scope Withdrawal Time 0 hours 8 minutes 32 seconds Scope Out: 6:49:39 AM Total Procedure Duration Time 0 hours 18 minutes 3 seconds Findings: The digital rectal exam findings include thrombosed external hemorrhoids, non-thrombosed internal hemorrhoids and internal hemorrhoids that prolapse with straining, but require manual replacement into the anal canal (Grade III). Pertinent negatives include normal prostate (size, shape, and consistency). Multiple diverticula were found in the entire colon. A 6 mm polyp was found in the splenic flexure. The polyp was sessile. The polyp was removed with a cold snare. Resection and retrieval were complete. Impression: - Thrombosed external hemorrhoids, non-thrombosed internal hemorrhoids and internal hemorrhoids that prolapse with straining, but require manual replacement into the anal canal (Grade III) found on digital rectal exam. - Diverticulosis in the entire examined colon. - One 6 mm polyp at the splenic flexure, removed with a cold snare. Resected and retrieved. Recommendation: - Discharge patient to home. - Resume previous diet. - Continue present medications. - Repeat colonoscopy in 5 years for surveillance. - Telephone my office for pathology results in 1 week. Procedure Code(s): --- Professional --- 99979, Colonoscopy, flexible; with removal of tumor(s), polyp(s), or other lesion(s) by snare technique 20932, 59, Moderate sedation services provided by the same physician or other qualified health direct care specialist performing the diagnostic or therapeutic service that the sedation supports, requiring the presence of an independent trained observer to assist in the monitoring of the patient's level of consciousness and physiological status; initial 15 minutes of intraservice time, patient age 5 years or older Diagnosis Code(s): --- Professional --- Z12.11, Encounter for screening for malignant neoplasm of colon K64.2, Third degree hemorrhoids K64.5, Perianal venous thrombosis D12.3, Benign neoplasm of transverse colon (hepatic flexure or splenic flexure) K57.30, Diverticulosis of large intestine without perforation or abscess without bleeding CPT copyright 2017 [employer]. All rights reserved. The codes documented in this report are preliminary and upon night warehouse selector review may be revised to meet current compliance requirements. Chico Lombardi MD 05/17/2018 6:55:39 AM This report has been signed electronically. Number of Addenda: 0 Note Initiated On: 05/17/2018 6:03 AM
== END 2018-05-17 08:15 | disposition home or self-care (01) ==
LOC: EN 05:26 → AC 05:27
PROVIDERS: Family Provider Family Medicine; PCP Family Medicine; Referring Provider Surgery; Visit Provider Surgery
PROC: 0DJD8ZZ Inspection of Lower Intestinal Tract, Via Natural or Artificial Opening Endoscopic (ICD-10-PCS; CPT 45378; principal; 2018-05-17 06:25)
DX: Z12.11 Encounter for screening for malignant neoplasm of colon (principal); K64.2 Third degree hemorrhoids; K64.5 Perianal venous thrombosis; D12.3 Benign neoplasm of transverse colon; K57.30 Diverticulosis of large intestine without perforation or abscess without bleeding; F41.9 Anxiety disorder, unspecified; G47.30 Sleep apnea, unspecified; F17.200 Nicotine dependence, unspecified, uncomplicated
CPT/HCPCS: 45385; 88305; 99152; 99153; J7120

== ENCOUNTER → 2019-03-31 08:29 | Outpatient (CLI) | payer BC, SELFPAY ==
[2018-05-17 05:51] VITALS: BMI 18.3
[2019-03-31 10:06] LABS: Anion Gap 6 (5-15); BUN 17 mg/dL (7-18); BUN/Creat Ratio 19.4 RATIO (10-20); Calcium,Total 8.7 mg/dL (8.5-10.1); Chloride 107 mmol/L (98-107); Cholesterol 239 mg/dL (200); Creatinine, Serum 0.88 mg/dL (0.70-1.30); EST Glomerular Filtration Rate 94 mL/min (>60); Est Glom Filt Rate - Afr Amer 113 mL/min (>60); Glucose 87 mg/dL (74-106); High Density Lipoprotein 82 mg/dL; Potassium 3.8 mmol/L (3.5-5.1); Sodium Level 142 mmol/L (136-145); Triglycerides 64 mg/dL; Very Low Density Lipoprotein 13 mg/dL (5-40)
== END ==
PROVIDERS: Family Provider Family Medicine; PCP Family Medicine; Referring Provider Family Medicine; Visit Provider Family Medicine
DX: I10 Essential (primary) hypertension (principal); E78.00 Pure hypercholesterolemia, unspecified; Z12.5 Encounter for screening for malignant neoplasm of prostate
CPT/HCPCS: 36415; 80048; 80061

== ENCOUNTER → 2020-03-15 09:39 | Outpatient (CLI) | payer BC, SELFPAY ==
[2018-05-17 05:51] VITALS: BMI 18.3
[2020-03-15 11:08] LABS: Anion Gap 6 (5-15); BUN 16 mg/dL (7-18); Chloride 108 mmol/L (98-107); Creatinine, Serum 0.84 mg/dL (0.70-1.30); EST Glomerular Filtration Rate 98 mL/min (>60); Est Glom Filt Rate - Afr Amer 119 mL/min (>60); Glucose 93 mg/dL (74-106); Sodium Level 141 mmol/L (136-145)
== END ==
PROVIDERS: PCP Family Medicine; Referring Provider Family Medicine; Visit Provider Family Medicine
DX: I10 Essential (primary) hypertension (principal)
CPT/HCPCS: 36415; 80048

== ENCOUNTER → 2020-10-12 09:16 | Outpatient (CLI) | payer BC, SELFPAY ==
[2018-05-17 05:51] VITALS: BMI 18.3
[2020-10-12 10:32] LABS: Cholesterol 278 mg/dL (200); High Density Lipoprotein 69 mg/dL; Triglycerides 109 mg/dL; Very Low Density Lipoprotein 22 mg/dL (5-40)
== END ==
PROVIDERS: PCP Family Medicine; Visit Provider Family Medicine
DX: I10 Essential (primary) hypertension (principal)
CPT/HCPCS: 36415; 80061

== ENCOUNTER → 2021-01-03 09:01 | Outpatient (CLI) | payer BC, SELFPAY ==
[2021-01-03 18:32] LABS: AST(SGOT) 26 U/L (15-37); Alanine Aminotransfer ALT/SGPT 36 U/L (16-61); Albumin, Serum 3.8 g/dL (3.2-5.0); Alkaline Phosphatase 51 U/L (45-117); Anion Gap 8 (5-15); BUN 16 mg/dL (7-18); BUN/Creat Ratio 19.1 RATIO (10-20); Calcium,Total 9.4 mg/dL (8.5-10.1); Chloride 106 mmol/L (98-107); Cholesterol 217 mg/dL (200); Creatinine, Serum 0.84 mg/dL (0.70-1.30); EST Glomerular Filtration Rate 99 mL/min (>60); Est Glom Filt Rate - Afr Amer 119 mL/min (>60); Globulin 3.7 g/dL (2.2-4.2); Glucose 88 mg/dL (74-106); High Density Lipoprotein 61 mg/dL; Protein, Total 7.5 g/dL (6.4-8.2); Sodium Level 140 mmol/L (136-145); Triglycerides 102 mg/dL; Very Low Density Lipoprotein 20 mg/dL (5-40)
== END ==
PROVIDERS: PCP Family Medicine; Visit Provider Family Medicine
DX: I10 Essential (primary) hypertension (principal)
CPT/HCPCS: 36415; 80053; 80061

== ENCOUNTER → 2021-01-04 16:23 | Outpatient (CLI) | payer BC, SELFPAY ==
[2021-01-04 18:34] LABS: Microalbumin,Random Urine 6.8 mg/L (NO RANGE EST.); Microalbumin:Creatinine Ratio 5.6 mg/g CRE (<30 mg/g CRE)
== END ==
PROVIDERS: PCP Family Medicine; Referring Provider Family Medicine; Visit Provider Family Medicine
DX: I10 Essential (primary) hypertension (principal)
CPT/HCPCS: 82043; 82570

== ENCOUNTER → 2024-11-21 | Outpatient (CLI) | payer BC, SELFPAY ==
--- NOTE | 2024-11-21 08:00 | CDU_ITS ---
Reason For Study Reason For Study: HTN, Hyperlipidemia Rt. Velocities/BP Lt. Velocities/BP Prox CCA 89.4/14.6 cm/sec. Prox CCA 93.8/22.3 cm/sec. Mid CCA 75.1/13.5 cm/sec. Mid CCA 85.0/21.2 cm/sec. Dist CCA 53.1/9.1 cm/sec. Dist CCA 66.3/22.3 cm/sec. Prox ICA 42.1/14.2 cm/sec. Prox ICA 62.2/16.8 cm/sec. Mid ICA 56.1/20.3 cm/sec. Mid ICA 72.7/26.4 cm/sec. Dist ICA 63.9/22.9 cm/sec. Dist ICA 63.1/23.8 cm/sec. Rt. ICA/CCA = 0.9. Lt. ICA/CCA = 0.9. Prox ECA 96.0/14.6 cm/sec. Prox ECA 92.7/10.2 cm/sec. Rt. Vert. 37.8/8.1 cm/sec. Lt. Vert. 43.0/10.7 cm/sec. Right Extracranial There is intimal thickening but no significant atherosclerotic plaque noted in the right common carotid artery. There is heterogeneous, irregular atherosclerotic plaque noted in the right internal carotid artery. There is heterogeneous, irregular atherosclerotic plaque noted in the right external carotid artery. Antegrade flow is noted in the right vertebral artery. Left Extracranial There is intimal thickening but no significant atherosclerotic plaque noted in the left common carotid artery. There is heterogeneous, irregular atherosclerotic plaque noted in the left internal carotid artery. There is intimal thickening but no significant atherosclerotic plaque noted in the left external carotid artery. Antegrade flow is noted in the left vertebral artery. Procedure Carotid Duplex 84434. This is a Carotid Duplex examination using B-mode, color flow and specral Doppler. Exam performed in department. VL/Carotid Duplex Ultrasound Interpretation Summary Mild (<50%) stenosis right extracranial internal carotid. Mild (<50%) stenosis left extracranial internal carotid. Flow within the vertebral arteries is antegrade bilaterally. Ordering Physician: Apolonia Box Referring Physician: Delvin De Jesus MD Performed By: Giana Killian
== END | disposition home or self-care (01) ==
LOC: CVS 07:59
PROVIDERS: PCP Family Medicine; Referring Provider Nurse Practitioner Family; Visit Provider Nurse Practitioner Family
DX: N28.9 Disorder of kidney and ureter, unspecified (principal); I79.8 Other disorders of arteries, arterioles and capillaries in diseases classified elsewhere; E78.00 Pure hypercholesterolemia, unspecified; I10 Essential (primary) hypertension
CPT/HCPCS: 93880

== ENCOUNTER → 2025-01-02 | Outpatient (CLI) | payer BC, SELFPAY ==
[2025-01-02 10:53] LABS: Hematocrit 45.0 % (40-54); Hemoglobin 15.2 g/dL (13.0-16.5); Mean Corp Hgb Conc 33.8 g/dL (32-36); Mean Corpuscular Volume 93.9 fL (80-94); Mean Platelet Vol. 10.0 fl (6.2-12.0); Platelet Count 264 K/mm3 (150-450); RBC Distribution Width CV 12.6 % (11.6-14.6); RBC Distribution Width SD 43.9 fl (35.1-43.9); Red Blood Count 4.79 M/mm3 (4.6-6.2); White Blood Count 5.1 K/mm3 (4.4-11.0)
[2025-01-02 11:23] LABS: AST(SGOT) 29 U/L (<=37); Alanine Aminotransfer ALT/SGPT 31 U/L (<=46); Albumin, Serum 4.4 g/dL (3.4-4.8); Alkaline Phosphatase 57 U/L (40-129); Anion Gap 11 (5-15); BUN 21 mg/dL (4-19); BUN/Creat Ratio 25.5 RATIO (10-20); Calcium,Total 9.2 mg/dL (7.6-11.0); Carbon Dioxide 23.8 mmol/L (21.0-32.0); Chloride 105 mmol/L (98-108); Cholesterol 257 mg/dL (<=200); Globulin 2.9 g/dL (2.2-4.2); Glucose 99 mg/dL (70-99); Low Density Lipoprotein Calc. 185 mg/dL; Potassium 4.3 mmol/L (3.3-5.1); Triglycerides 59 mg/dL; Very Low Density Lipoprotein 12 mg/dL (5-40); cholesterol:hdl ratio screen 4.25
== END | disposition home or self-care (01) ==
LOC: LAB 09:26
PROVIDERS: PCP Nurse Practitioner Family; Referring Provider Nurse Practitioner Family; Visit Provider Nurse Practitioner Family
DX: N28.9 Disorder of kidney and ureter, unspecified (principal); E78.00 Pure hypercholesterolemia, unspecified; I10 Essential (primary) hypertension
CPT/HCPCS: 36415; 80053; 80061; 85027